=== PATIENT | female | born 1960 | race Caucasian/White ===

== ENCOUNTER 2024-03-03 11:29 | Outpatient (RCR) | payer OTHER, SELFPAY | END 2024-03-03 23:59 | disposition home or self-care (01) | LOC: RPT 11:29 | PROVIDERS: ATTENDING PHYSICIAN Family Medicine | DX: N39.41 Urge incontinence (principal); N94.10 Unspecified dyspareunia; R10.2 Pelvic and perineal pain; R27.8 Other lack of coordination; M62.838 Other muscle spasm; M62.89 Other specified disorders of muscle | CPT/HCPCS: 97162; 97530 ==

== ENCOUNTER 2024-03-31 09:05 | Outpatient (RCR) | payer OTHER, SELFPAY | END 2024-03-31 23:59 | disposition home or self-care (01) | LOC: RPT 09:05 | PROVIDERS: ATTENDING PHYSICIAN Family Medicine | DX: N39.41 Urge incontinence (principal); N94.10 Unspecified dyspareunia; R10.2 Pelvic and perineal pain; Z73.6 Limitation of activities due to disability; R27.8 Other lack of coordination; M62.838 Other muscle spasm; M62.89 Other specified disorders of muscle; R26.89 Other abnormalities of gait and mobility | CPT/HCPCS: 97140; 97530 ==

== ENCOUNTER 2024-04-29 14:18 | Outpatient (RCR) | payer OTHER, SELFPAY | END 2024-04-29 23:59 | disposition home or self-care (01) | LOC: RPT 14:18 | PROVIDERS: ATTENDING PHYSICIAN Family Medicine | DX: N39.41 Urge incontinence (principal); N94.10 Unspecified dyspareunia; R10.2 Pelvic and perineal pain; R27.8 Other lack of coordination; M62.838 Other muscle spasm; M62.89 Other specified disorders of muscle | CPT/HCPCS: 97014; 97112; 97140; 97530 ==

== ENCOUNTER 2024-06-02 14:14 | Outpatient (RCR) | payer OTHER, SELFPAY | END 2024-06-02 23:59 | disposition home or self-care (01) | LOC: RPT 14:14 | PROVIDERS: ATTENDING PHYSICIAN Obstetrics & Gynecology; FAMILY PHYSICIAN Internal Medicine | DX: N94.10 Unspecified dyspareunia (principal); R10.2 Pelvic and perineal pain; Z73.6 Limitation of activities due to disability; R27.8 Other lack of coordination; M62.838 Other muscle spasm; M62.89 Other specified disorders of muscle | CPT/HCPCS: 97014; 97112; 97140; 97530 ==

== ENCOUNTER 2024-06-21 12:11 | Outpatient (RCR) | payer OTHER, SELFPAY | END 2024-06-21 23:59 | disposition home or self-care (01) | LOC: RPT 12:11 | PROVIDERS: ATTENDING PHYSICIAN Obstetrics & Gynecology; FAMILY PHYSICIAN Internal Medicine | DX: N39.41 Urge incontinence (principal); N94.10 Unspecified dyspareunia; R10.2 Pelvic and perineal pain; Z73.6 Limitation of activities due to disability; R27.8 Other lack of coordination; M62.838 Other muscle spasm; M62.89 Other specified disorders of muscle | CPT/HCPCS: 97014; 97112; 97140; 97530 ==

== ENCOUNTER 2024-08-04 13:09 | Outpatient (RCR) | payer OTHER, SELFPAY | END 2024-08-04 23:59 | disposition home or self-care (01) | LOC: RPT 13:09 | PROVIDERS: ATTENDING PHYSICIAN Obstetrics & Gynecology; FAMILY PHYSICIAN Internal Medicine | DX: N39.41 Urge incontinence (principal); N94.10 Unspecified dyspareunia; R10.2 Pelvic and perineal pain; Z73.6 Limitation of activities due to disability; R27.8 Other lack of coordination; M62.838 Other muscle spasm; M62.89 Other specified disorders of muscle | CPT/HCPCS: 97014; 97112; 97140; 97530 ==

== ENCOUNTER 2024-08-30 15:21 | Outpatient (RCR) | payer OTHER, SELFPAY | END 2024-08-30 23:59 | disposition home or self-care (01) | LOC: RPT 15:21 | PROVIDERS: ATTENDING PHYSICIAN Obstetrics & Gynecology; FAMILY PHYSICIAN Internal Medicine | DX: N39.41 Urge incontinence (principal); N94.10 Unspecified dyspareunia; R10.2 Pelvic and perineal pain; Z73.6 Limitation of activities due to disability; R27.8 Other lack of coordination; M62.838 Other muscle spasm; M62.89 Other specified disorders of muscle | CPT/HCPCS: 97014; 97112; 97140; 97530 ==

== ENCOUNTER 2024-09-20 15:07 | Outpatient (RCR) | payer OTHER, SELFPAY | END 2024-09-20 23:59 | disposition home or self-care (01) | LOC: RPT 15:07 | PROVIDERS: ATTENDING PHYSICIAN Obstetrics & Gynecology; FAMILY PHYSICIAN Internal Medicine | DX: N39.41 Urge incontinence (principal); N94.10 Unspecified dyspareunia; R10.2 Pelvic and perineal pain; Z73.6 Limitation of activities due to disability; R27.8 Other lack of coordination; M62.838 Other muscle spasm; M62.89 Other specified disorders of muscle | CPT/HCPCS: 97014; 97112; 97140; 97530 ==

== ENCOUNTER 2024-11-03 15:11 | Outpatient (RCR) | payer OTHER, SELFPAY | END 2024-11-03 23:59 | disposition home or self-care (01) | LOC: RPT 15:11 | PROVIDERS: ATTENDING PHYSICIAN Obstetrics & Gynecology; FAMILY PHYSICIAN Internal Medicine | DX: N39.41 Urge incontinence (principal); N94.10 Unspecified dyspareunia; R10.2 Pelvic and perineal pain; Z73.6 Limitation of activities due to disability; R27.8 Other lack of coordination; M62.838 Other muscle spasm; M62.89 Other specified disorders of muscle | CPT/HCPCS: 97014; 97112; 97140; 97530 ==

== ENCOUNTER 2024-11-10 10:17 | Outpatient (RCR) | payer OTHER, SELFPAY | END 2024-11-10 13:57 | disposition home or self-care (01) | LOC: RPT 10:17 | PROVIDERS: ATTENDING PHYSICIAN Obstetrics & Gynecology; FAMILY PHYSICIAN Internal Medicine | DX: N39.41 Urge incontinence (principal); N94.10 Unspecified dyspareunia; R10.2 Pelvic and perineal pain; Z73.6 Limitation of activities due to disability; R27.8 Other lack of coordination; M62.838 Other muscle spasm; M62.89 Other specified disorders of muscle | CPT/HCPCS: 97530 ==